=== PATIENT | male | born 1980 | race Caucasian/White ===

== ENCOUNTER 2018-08-21 09:45 | Emergency (ER) | payer OTHER ==
[~2018-08-21] VITALS: Ht 177.8 cm; Wt 66.0 kg
[2018-08-21 09:50] VITALS: BP 144/97
[2018-08-21] MEDS ORDERED: OXYcodone/APAP 5/325MG TABLET ONE (10:20)
[2018-08-21] MEDS ORDERED: LIDOCAINE-MPF 2% ,5ML ONE (10:23)
[2018-08-21] MEDS ORDERED: LIDOCAINE-MPF 2%, 2ML INFIL ONE (10:30)
[2018-08-21] MEDS ORDERED: OXYcodone/APAP 5/325MG TABLET PO ONE (10:30)
[2018-08-21] MEDS ORDERED: BACITRACIN ZINC OINT 500U/GM, 0.9 GM ONE ×2 (11:08)
== END 2018-08-21 11:45 | disposition home or self-care (01) ==
LOC: ED 10:02
DX: S50.871A Other superficial bite of right forearm, initial encounter (principal); W54.0XXA Bitten by dog, initial encounter; Y93.89 Activity, other specified; Y92.89 Other specified places as the place of occurrence of the external cause; Y99.8 Other external cause status
CPT/HCPCS: 12001; 99284